=== PATIENT | male | born 1945 | race Caucasian/White ===

== ENCOUNTER → 2019-04-04 | Outpatient (CLI) | payer OTHER ==
[~2019-04-04] MED LIST: COUMADIN 5 MG TA5 M1 PO; DIOVAN 80 MG TA80 M1 PO; ENOXAPARIN80 MG/0.1 SUBQ; FLONASE 0.05%50 MCG NASAL; FLOVENT HFA 2220 MCG INH; METFORMIN HCL500 MG PO; NIFEDICAL XL60 MG PO; VALSARTAN-HCTZ1 EAC2 PO; ZANTAC 150MG T150 M1 PO
== END ==
LOC: SJCVCIMAG 10:04
DX: I10 Essential (primary) hypertension (principal); E78.5 Hyperlipidemia, unspecified; E11.9 Type 2 diabetes mellitus without complications